=== PATIENT | male | born 1995 ===

== ENCOUNTER 2024-11-12 11:13 | Outpatient (OUT) | payer OTHER, SELFPAY ==
--- NOTE | 2024-11-12 | XR_ITS ---
The [address] [address] Patient Name: HAILE GIL MRN: [id number] date: 1995 Sex: M Assigned Patient Location: Current Patient Location: Accession/Order Number: [id number] Exam Date: 11/12/2024 11:15 Report Date: 11/14/2024 08:37 At the request of: BK DIXON Procedure: XR knee RT 4V EXAM: Right knee HISTORY: . RIGHT KNEE PAIN . COMPARISON: None. TECHNIQUE: 4 views FINDINGS: No fracture or dislocation of the knee is noted. Joint spaces are well-maintained. Surrounding soft tissues are unremarkable. XR/XR knee RT 4V IMPRESSION: Negative right knee. Electronically authenticated by: TOREY WORLEY Date: 11/14/2024 08:37
== END 2024-11-12 11:14 | disposition home or self-care (01) ==
LOC: EC 11:13
PROVIDERS: Visit Provider Orthopaedic Surgery
DX: M25.561 Pain in right knee (principal)
CPT/HCPCS: 73564